=== PATIENT | female | born 2000 | race Caucasian/White ===

== ENCOUNTER → 2023-05-18 | Outpatient (CLI) | payer BC ==
--- NOTE | 2023-05-18 10:07 | Diagnostic Imaging Report ---
INDICATION: Left breast lump. FINDINGS: Interrogation of the area of lump in the medial left breast was performed. No definite sonographic abnormality is seen. No solid or cystic mass is detected. IMPRESSION: No sonographic abnormality is seen. Continued close clinical and self breast exams are recommended to confirm stability of the palpable abnormality. ACR BI-RADS Category 1: Negative. Dictated by: Dictated on workstation # [id number]
== END ==
LOC: RAD 08:56
PROVIDERS: ATTEND Obstetrics & Gynecology
DX: N63.20 Unspecified lump in the left breast, unspecified quadrant (principal)
CPT/HCPCS: 76641

== ENCOUNTER 2023-06-04 22:52 | Emergency (ER) | payer BC ==
[~2023-06-04] VITALS: Ht 172 cm; Wt 97.0 kg
[2023-06-04 22:57] VITALS: BP 115/77
[2023-06-04] MEDS ORDERED: METOCLOPRAMIDE INJ 10 MG/2 ML (REGLAN) IVP STA (23:09)
[2023-06-04] MEDS ORDERED: LACTATED RINGERS 1,000 ML IV ONE (23:15)
[2023-06-04 23:22] LABS: BILIRUBIN,URINE NEGATIVE (NEGATIVE); CLARITY,URINE CLEAR; COLOR,URINE YELLOW; GLUCOSE, URINE (UA) NEGATIVE (NEGATIVE); KETONES,URINE NEGATIVE (NEGATIVE); LEUKOCYTE ESTERASE ,URINE NEGATIVE (NEGATIVE); NITRITE,URINE NEGATIVE (NEGATIVE); PROTEIN,URINE NEGATIVE (NEGATIVE)
[2023-06-04 23:30] LABS: BACTERIA,URINE TRACE /HPF; SQUAMOUS EPITHELIAL CELL,UR 0-2 /HPF
[2023-06-04 23:31] LABS: BASOPHILS % (AUTO) 0 % (0-10); EOSINOPHILS % (AUTO) 0 % (0-10); HEMATOCRIT 39 % (35-52); HEMOGLOBIN 13.4 g/dL (11.5-16.0); LYMPHOCYTES # (AUTO) 2.9 10^3/uL (1.0-4.0); LYMPHOCYTES % (AUTO) 29 % (12-44); MEAN CORPUSCULAR HEMOGLOBIN 31 pg (25-34); MEAN CORPUSCULAR HGB CONC 35 g/dL (32-36); MEAN CORPUSCULAR VOLUME 89 fL (80-99); MEAN PLATELET VOLUME 10.9 fL (9.0-12.2); MONOCYTES # (AUTO) 0.7 10^3/uL (0.0-1.0); MONOCYTES % (AUTO) 7 % (0-12); NEUTROPHILS # (AUTO) 6.1 10^3/uL (1.8-7.8); NEUTROPHILS % (AUTO) 63 % (42-75); PLATELET COUNT 197 10^3/uL (130-400); WHITE BLOOD COUNT 9.8 10^3/uL (4.3-11.0)
[2023-06-04 23:38] LABS: AMPHETAMINE SCREEN, URINE NEGATIVE (NEGATIVE); BARBITURATE SCREEN URINE NEGATIVE (NEGATIVE); BENZODIAZEPINES SCREEN URINE NEGATIVE (NEGATIVE); CANNABINOID SCREEN, URINE NEGATIVE (NEGATIVE); COCAINE SCREEN URINE NEGATIVE (NEGATIVE); METHADONE STAT NEGATIVE (NEGATIVE); OPIATE SCREEN URINE NEGATIVE (NEGATIVE); OXYCODONE STAT NEGATIVE (NEGATIVE); PROPOXYPHENE STAT NEGATIVE (NEGATIVE); TRICYCLIC ANTIDEPRESSANTS SCRE NEGATIVE (NEGATIVE)
[2023-06-04 23:45] LABS: ALBUMIN 4.1 GM/DL (3.2-4.5); POTASSIUM 3.7 MMOL/L (3.6-5.0)
[2023-06-04 23:47] LABS: CALCIUM 9.2 MG/DL (8.5-10.1)
[2023-06-04 23:48] LABS: TOTAL PROTEIN 6.8 GM/DL (6.4-8.2)
[2023-06-04 23:50] LABS: BILIRUBIN,TOTAL 0.3 MG/DL (0.1-1.0)
[2023-06-04 23:52] LABS: CREATININE SERUM 0.64 MG/DL (0.60-1.30)
[2023-06-04 23:54] LABS: MAGNESIUM 1.9 MG/DL (1.6-2.4)
--- NOTE | 2023-06-05 00:05 | ED General ---
General Chief Complaint: Dizziness/Syncope Stated Complaint: DIZZINESS/MIGRAINE/NAUSEA 18 WKS PREG Nursing Triage Note: PT TO ED W/ C/O NAUSEA, GUSTAFSON ET DIZZINESS ONSET THIS AM. PT REPORTS PRESENTLY 18WKS . NO OTHER C/O VOICED. Source of Information: Patient Allergies and Home Medications Allergies Coded Allergies: No Known Drug Allergies (Unverified , 06/04/23) Review of Systems Review of Systems Expected Date of Delivery: Oct 06, 2023 Past Ngkrnln-Qugutr-Uvsahk Hx Patient Social History Tobacco Use?: No Use of E-Cig and/or Vaping dev: No Substance use?: No Alcohol Use?: No Pt feels they are or have been: No Past Medical History Surgery/Hospitalization HX: HYPOTHYROID DIEGO Expected Date of Delivery: Oct 06, 2023 Physical Exam Vital Signs Vital Signs - First Documented 06/04/23 22:57 Temp 36.6 Pulse 100 Resp 20 B/P (MAP) 115/77 (90) Pulse Ox 100 O2 Delivery Room Air Capillary Refill : Less Than 3 Seconds Height, Weight, BMI Height: '" Weight: lbs. oz. kg; 32.00 BMI Method: Progress/Results/Core Measures Suspected Sepsis SIRS Temperature: Pulse: 100 Respiratory Rate: 20 Laboratory Tests 06/04/23 23:20: White Blood Count 9.8 Blood Pressure 115 /77 Mean: 90 Laboratory Tests 06/04/23 23:20: Creatinine 0.64, Platelet Count 197, Total Bilirubin 0.3 Results/Orders Lab Results Laboratory Tests Test 06/04/23 23:15 06/04/23 23:20 06/04/23 23:23 Range/Units Urine Color YELLOW Urine Clarity CLEAR Urine pH 6.0 5-9 Urine Specific [place] 1.020 1.016-1.022 Urine Protein NEGATIVE NEGATIVE Urine Glucose (UA) NEGATIVE NEGATIVE Urine Ketones NEGATIVE NEGATIVE Urine Nitrite NEGATIVE NEGATIVE Urine Bilirubin NEGATIVE NEGATIVE Urine Urobilinogen 0.2 < = 1.0 MG/DL Urine Leukocyte Esterase NEGATIVE NEGATIVE Urine RBC (Auto) NEGATIVE NEGATIVE Urine RBC NONE /HPF Urine WBC NONE /HPF Urine Squamous Epithelial Cells 0-2 /HPF Urine Crystals NONE /LPF Urine Bacteria TRACE /HPF Urine Casts NONE /LPF Urine Mucus MODERATE H /LPF Urine Culture Indicated NO Urine Opiates Screen NEGATIVE NEGATIVE Urine Oxycodone Screen NEGATIVE NEGATIVE Urine Methadone Screen NEGATIVE NEGATIVE Urine Propoxyphene Screen NEGATIVE NEGATIVE Urine Barbiturates Screen NEGATIVE NEGATIVE Ur Tricyclic Antidepressants Screen NEGATIVE NEGATIVE Urine Phencyclidine Screen NEGATIVE NEGATIVE Urine Amphetamines Screen NEGATIVE NEGATIVE Urine Methamphetamines Screen NEGATIVE NEGATIVE Urine Benzodiazepines Screen NEGATIVE NEGATIVE Urine Cocaine Screen NEGATIVE NEGATIVE Urine Cannabinoids Screen NEGATIVE NEGATIVE White Blood Count 9.8 4.3-11.0 10^3/uL Red Blood Count 4.35 3.80-5.11 10^6/uL Hemoglobin 13.4 11.5-16.0 g/dL Hematocrit 39 35-52 % Mean Corpuscular Volume 89 80-99 fL Mean Corpuscular Hemoglobin 31 25-34 pg Mean Corpuscular Hemoglobin Concent 35 32-36 g/dL Red Cell Distribution Width 13.0 10.0-14.5 % Platelet Count 197 130-400 10^3/uL Mean Platelet Volume 10.9 9.0-12.2 fL Immature Granulocyte % (Auto) 0 % Neutrophils (%) (Auto) 63 42-75 % Lymphocytes (%) (Auto) 29 12-44 % Monocytes (%) (Auto) 7 0-12 % Eosinophils (%) (Auto) 0 0-10 % Basophils (%) (Auto) 0 0-10 % Neutrophils # (Auto) 6.1 1.8-7.8 10^3/uL Lymphocytes # (Auto) 2.9 1.0-4.0 10^3/uL Monocytes # (Auto) 0.7 0.0-1.0 10^3/uL Eosinophils # (Auto) 0.0 0.0-0.3 10^3/uL Basophils # (Auto) 0.0 0.0-0.1 10^3/uL Immature Granulocyte # (Auto) 0.0 0.0-0.1 10^3/uL Sodium Level 139 135-145 MMOL/L Potassium Level 3.7 3.6-5.0 MMOL/L Chloride Level 107 98-107 MMOL/L Carbon Dioxide Level 22 21-32 MMOL/L Anion Gap 10 5-14 MMOL/L Blood Urea Nitrogen 7 7-18 MG/DL Creatinine 0.64 0.60-1.30 MG/DL Estimat Glomerular Filtration Rate 130 BUN/Creatinine Ratio 11 Glucose Level 78 70-105 MG/DL Calcium Level 9.2 8.5-10.1 MG/DL Corrected Calcium 9.1 8.5-10.1 MG/DL Magnesium Level 1.9 1.6-2.4 MG/DL Total Bilirubin 0.3 0.1-1.0 MG/DL Aspartate Amino Transf (AST/SGOT) 16 5-34 U/L Alanine Aminotransferase (ALT/SGPT) 19 0-55 U/L Alkaline Phosphatase 68 40-136 U/L Total Protein 6.8 6.4-8.2 GM/DL Albumin 4.1 3.2-4.5 GM/DL Amylase Level 44 25-125 U/L Lipase 14 8-78 U/L Influenza Type A (RT-PCR) Not Detected Not Detecte Influenza Type B (RT-PCR) Not Detected Not Detecte SARS-CoV-2 RNA (RT-PCR) Not Detected Not Detecte My Orders Orders - JEANETH OLMSTEAD DO Drug Screen Stat (Urine) (06/04/23 22:58) Ua Culture If Indicated (06/04/23:58) Covid 19 Inhouse Test (06/04/23 22:58) Influenza A And B By Pcr (06/04/23:58) Heart Tones (06/04/23 22:58) Ed Iv/Invasive Line Start (06/04/23 23:09) Monitor-Rhythm Ecg Trace Only (06/04/23 23:09) Amylase (06/04/23 23:09) Cbc With Automated Diff (06/04/23 23:) Comprehensive Metabolic Panel (06/04/23 23:09) Lipase (06/04/23 23:09) Magnesium (06/04/23 23:09) Ed Iv/Invasive Line Start (06/04/23 23:09) Lactated Ringers (Lr 1000 Ml Iv Solution (06/04/23 23:15) Metoclopramide Injection (Reglan Injecti (06/04/23 23:09) Medications Given in ED Current Medications Medications Dose Ordered Sig/Trini Route Start Time Stop Time Status Last Admin Dose Admin Lactated Ringer's 1,000 ml @ 0 mls/hr Q0M ONCE IV 06/04/23 23:15 06/04/23 23:16 DC 06/04/23:23 0 MLS/HR Vital Signs/I&O 06/04/23 22:57 Temp 36.6 Pulse 100 Resp 20 B/P (MAP) 115/77 (90) Pulse Ox 100 O2 Delivery Room Air Capillary Refill : Less Than 3 Seconds Blood Pressure Mean: 90 Departure Impression Primary Impression: Dizziness Additional Impressions: Nausea Volume depletion 18 weeks gestation of Disposition: HOME, SELF-CARE Condition: Improved Departure-Patient Inst. Decision time for Depature: 00:01 Referrals: JEANETH HUERTAS MD (PCP/Family) Primary Care Physician Patient Instructions: Nausea and Vomiting, Adult ED, Dehydration, Adult ED, Dehydration, Adult (DC) Add. Discharge Instructions: HOME, REST INCREASE YOUR FLUID INTAKE --DRINK EQUAL AMOUNTS OF WATER AND GATORADE TAKE YOUR HOME NAUSEA MEDICATIONS PRESCRIBED FOLLOW UP WITH YOUR DR ON TUESDAY IF YOUR SYMPTOMS PERSIST. RETURN TO ER IF WORSE All discharge instructions reviewed with patient and/or family. Voiced understanding. JEANETH OLMSTEAD DO Jun 05, 2023 00:05
== END 2023-06-05 00:10 | disposition home or self-care (01) ==
LOC: EDUNIT# 22:52 → ER 22:55
DX: O99.282 Endocrine, nutritional and metabolic diseases complicating pregnancy, second trimester (principal); E86.9 Volume depletion, unspecified; Z3A.18 18 weeks gestation of pregnancy; Z20.822 Contact with and (suspected) exposure to COVID-19
CPT/HCPCS: 36415; 80053; 80306; 81000; 82150; 83690; 83735; 85025; 87636

== ENCOUNTER → 2023-06-24 | Outpatient (CLI) | payer BC ==
--- NOTE | 2023-06-24 16:28 | Diagnostic Imaging Report ---
INDICATION: Supervision of normal . Anatomy scan. TECHNIQUE: Multiple real-time grayscale images were obtained over the gravid uterus. COMPARISON: None. FINDINGS: Single live intrauterine gestation is visualized in cephalic presentation. heart tones measure 155 BPM. The placenta is anterior and not low lying. The amniotic fluid is normal measuring 10.7 cm. The cervix is closed and measures 4.4 cm in length. The kidneys, bladder, stomach, brain, four-chamber heart, outflow tracts, three-vessel cord, spine, and cord insertion are visualized and have a normal appearance. Views of the adnexa have a normal appearance without mass. No free fluid in the pelvis. Biometrical measurements are as follows: Biparietal 4.86 cm, age 20 weeks 5 days. Head circumference 18.40 cm, age 20 weeks 6 days. Abdominal circumference 14.39 cm, age 19 weeks 6 days. Femur length 3.59 cm, age 21 weeks 3 days. Sonographic estimate age: 20 weeks 5 days. Sonographic estimated date of delivery: 11/06/2023. Estimated Weight: 359 gm (+/- 53 gm). LMP percentile: 28%. heart rate: 155 beats per minute. number: 1 of 1. IMPRESSION: 1. Single live intrauterine gestation measuring 20 weeks 5 days and estimated due date of 11/06/2023. These are within range with the clinical dates. 2. Unremarkable anatomy scan. No abnormalities are identified. Dictated by: Dictated on workstation # [id number]
== END ==
LOC: RAD 15:00
PROVIDERS: ATTEND Obstetrics & Gynecology
DX: Z36.9 Encounter for antenatal screening, unspecified (principal); Z3A.20 20 weeks gestation of pregnancy
CPT/HCPCS: 76805

== ENCOUNTER 2023-07-01 14:13 | Outpatient (CLI) | payer BC ==
[~2023-07-01] VITALS: Ht 170.2 cm; Wt 100.2 kg
[2023-07-01 14:21] VITALS: BP 118/63
--- NOTE | 2023-07-01 14:51 | OB Triage Report ---
Standard Progress Note Progress Notes/Assess & Plan Date Seen by a Provider: Jul 01, 2023 Time Seen by a Provider: 14:47 Expected Date of Delivery: Nov 05, 2023 Gestational Age in Weeks: 21 Gestational Age in Days: 6 LMP/PAUL Comment: IUP @22wk HO triplet (Now just young) with decreased movement FHT 150s Progress/Assessment & Plan IUP @ 22wk Decreased movement TOCOs none reassurance given DC to home Keep next appt. Diagnosis/Problems Diagnosis/Problems (1) 22 weeks gestation of (2) Decreased movement Status: Acute Qualifiers: Qualified Codes: O36.8120 - Decreased movements, second trimester, not applicable or unspecified AMALIA BELCHER DO Jul 01, 2023 14:51
== END 2023-07-01 15:16 ==
LOC: WSo 14:13 → LDRP 14:13 → WSo 15:16
PROVIDERS: ATTEND Obstetrics & Gynecology
DX: O36.8120 Decreased fetal movements, second trimester, not applicable or unspecified (principal); Z3A.22 22 weeks gestation of pregnancy
CPT/HCPCS: 99212